=== PATIENT | female | born 1950 | race Caucasian/White ===

== ENCOUNTER 2017-05-25 15:12 | Observation (INO) | payer MEDICARE, OTHER ==
[~2017-05-25] VITALS: Ht 165.1 cm; Wt 82.2 kg
[2017-05-25] MEDS ORDERED: SODIUM CHLORIDE 0.9% 1,000 ML IV ONE (15:17)
[2017-05-25 15:33] LABS: DAU SCREEN DISCLAIMER
[2017-05-25 15:40] LABS: HEMATOCRIT 36.8 % (34.6-47.8); WHITE BLOOD COUNT 7.7 x10^3/uL (3.4-10)
[2017-05-25] MEDS ORDERED: CYCL-259 PO (15:43)
[2017-05-25] MEDS ORDERED: ZOLP10TA PO (15:43)
[2017-05-25] MEDS ORDERED: LORA-446 PO (15:43)
[2017-05-25] MEDS ORDERED: TELM20TA PO (15:43)
[2017-05-25] MEDS ORDERED: METF500T4 PO (15:43)
[2017-05-25] MEDS ORDERED: ESCI10TA10 PO (15:43)
[2017-05-25] MEDS ORDERED: AMLO10TA4 PO (15:43)
[2017-05-25] MEDS ORDERED: TRAM50TA2 PO (15:43)
[2017-05-25 15:49] LABS: BLOOD UREA NITROGEN 10 mg/dL (7-18)
[2017-05-25 15:57] LABS: ACETAMINOPHEN < 2 mcg/mL (10-30); ASPARTATE AMINO TRANSFERASE 17 U/L (15-37)
[2017-05-25] MEDS ORDERED: ONDANSETRON ODT 4 MG PO PRN (19:30)
[2017-05-25] MEDS ORDERED: POLYETHYLENE GLYCOL 17 GM PACKET PO PRN (19:30)
[2017-05-25] MEDS: INSULIN REGULAR 100 UNITS/ML, 3ML VIAL SQ-INSULIN SCH (21:00)
[2017-05-25] MEDS: HEPARIN 5,000 UNITS/ML, 1ML SQ SCH (23:57)
[2017-05-25] MEDS: ZOLPIDEM 5MG TABLET PO PRN (23:57)
[2017-05-26 00:07] VITALS: BP 169/99
[2017-05-26 03:50] VITALS: BP 144/87
[2017-05-26 05:32] LABS: HEMATOCRIT 36.5 % (34.6-47.8); HEMOGLOBIN 11.9 g/dL (11.7-16.4); WHITE BLOOD COUNT 6.5 x10^3/uL (3.4-10)
[2017-05-26 06:07] LABS: BLOOD UREA NITROGEN 11 mg/dL (7-18)
[2017-05-26] MEDS: INSULIN REGULAR 100 UNITS/ML, 3ML VIAL SQ-INSULIN SCH ×4 (07:00→21:00)
[2017-05-26 07:20] VITALS: BP 137/76
[2017-05-26] MEDS: AMLODIPINE 5 MG TABLET PO SCH ×3 (09:00→19:05)
[2017-05-26] MEDS: LOSARTAN 25MG TABLET PO SCH (09:43)
[2017-05-26] MEDS: HEPARIN 5,000 UNITS/ML, 1ML SQ SCH ×3 (09:43→23:23)
[2017-05-26 13:07] VITALS: BP 150/99
[2017-05-26] MEDS: IBUPROFEN 200 MG TABLET PO PRN ×2 (13:37→20:56)
[2017-05-26 18:25] VITALS: BP_SYST 171; BP_SYST 184; BP_DIAS 91; BP_DIAS 99
[2017-05-26] MEDS: ZOLPIDEM 5MG TABLET PO PRN (23:23)
[2017-05-27 02:00] VITALS: BP 135/73
[2017-05-27] MEDS: INSULIN REGULAR 100 UNITS/ML, 3ML VIAL SQ-INSULIN SCH ×4 (07:00→21:00)
[2017-05-27] MEDS: HEPARIN 5,000 UNITS/ML, 1ML SQ SCH ×3 (07:00→23:00)
[2017-05-27 07:04] VITALS: BP 171/93
[2017-05-27] MEDS: AMLODIPINE 5 MG TABLET PO SCH ×2 (08:52→17:08)
[2017-05-27] MEDS: LOSARTAN 25MG TABLET PO SCH (08:52)
[2017-05-27] MEDS: IBUPROFEN 200 MG TABLET PO PRN (11:22)
[2017-05-27] MEDS ORDERED: LORazepam 0.5MG TABLET PO PRN (13:00)
[2017-05-27] MEDS ORDERED: LORazepam 1MG TABLET ONE (13:03)
[2017-05-27 13:13] VITALS: BP 188/106
[2017-05-27] MEDS ORDERED: LORazepam 0.5MG TABLET PO SCH (14:30)
[2017-05-27] MEDS ORDERED: LORazepam 1MG TABLET PO SCH (16:00)
[2017-05-27 20:00] VITALS: BP 137/82
[2017-05-27] MEDS: metFORMIN 500 MG TABLET PO SCH (20:57)
[2017-05-27] MEDS: QUETIAPINE 25MG TABLET PO SCH (20:58)
[2017-05-28] MEDS: ZOLPIDEM 5MG TABLET PO PRN (02:01)
[2017-05-28 02:09] VITALS: BP 94/63
[2017-05-28] MEDS: INSULIN REGULAR 100 UNITS/ML, 3ML VIAL SQ-INSULIN SCH ×4 (07:00→21:00)
[2017-05-28 08:31] VITALS: BP 116/79
[2017-05-28] MEDS: metFORMIN 500 MG TABLET PO SCH ×2 (08:35→21:22)
[2017-05-28] MEDS: AMLODIPINE 5 MG TABLET PO SCH (08:35)
[2017-05-28] MEDS: LOSARTAN 25MG TABLET PO SCH (08:35)
[2017-05-28] MEDS: HEPARIN 5,000 UNITS/ML, 1ML SQ SCH ×3 (08:36→23:43)
[2017-05-28 12:30] VITALS: BP_SYST 116; BP_SYST 124; BP_DIAS 79; BP_DIAS 80
[2017-05-28] MEDS: IBUPROFEN 200 MG TABLET PO PRN (16:28)
[2017-05-28 19:11] VITALS: BP 136/73
[2017-05-28] MEDS: QUETIAPINE 25MG TABLET PO SCH (21:22)
[2017-05-29 00:34] VITALS: BP 103/67
[2017-05-29 06:22] VITALS: BP 128/74
[2017-05-29] MEDS: INSULIN REGULAR 100 UNITS/ML, 3ML VIAL SQ-INSULIN SCH ×2 (07:56→12:25)
[2017-05-29] MEDS: AMLODIPINE 5 MG TABLET PO SCH (08:13)
[2017-05-29] MEDS: LOSARTAN 25MG TABLET PO SCH (08:13)
[2017-05-29] MEDS: metFORMIN 500 MG TABLET PO SCH (08:15)
[2017-05-29] MEDS: HEPARIN 5,000 UNITS/ML, 1ML SQ SCH (08:17)
[2017-05-29 13:40] VITALS: BP 120/67
[2017-05-29] MEDS ORDERED: CLON-364 PO (14:23)
[2017-05-29] MEDS ORDERED: CLON-365 PO (14:23)
[2017-05-29 15:17] VITALS: BP 146/80
[2017-05-29] MEDS ORDERED: QUET50TA5 PO (15:40)
== END 2017-05-29 16:00 | disposition home or self-care (01) ==
LOC: ED 17:36 → EDIP 18:16 → 4NOR 20:25 → DCLOUNGE 05-29 15:35
PROVIDERS: ADMIT Internal Medicine; ATTEND Internal Medicine
DX: T50.902A Poisoning by unspecified drugs, medicaments and biological substances, intentional self-harm, initial encounter (principal); E11.9 Type 2 diabetes mellitus without complications; E66.9 Obesity, unspecified; E78.00 Pure hypercholesterolemia, unspecified; E78.5 Hyperlipidemia, unspecified; F33.2 Major depressive disorder, recurrent severe without psychotic features; F41.1 Generalized anxiety disorder; G47.00 Insomnia, unspecified; I10 Essential (primary) hypertension; I16.0 Hypertensive urgency; Z80.1 Family history of malignant neoplasm of trachea, bronchus and lung; Z82.5 Family history of asthma and other chronic lower respiratory diseases; Z83.3 Family history of diabetes mellitus; Y92.89 Other specified places as the place of occurrence of the external cause
CPT/HCPCS: 36415; 80048; 80053; 80307; 80329; 82962; 85025; 93005; 96360; 96361; 96372; 99285; G0378; J1644; J7030; G0480